=== PATIENT | female | born 1985 | race Caucasian/White ===

== ENCOUNTER 2022-03-07 11:42 | Emergency (ER) | payer BC, SELFPAY ==
[2022-03-07 11:49] VITALS: BP 112/75; PULSE 95; RESP 18; TEMP 37; O2SAT 94; BMI 23.4
[2022-03-07 12:00] VITALS: BP 103/67; PULSE 91; O2SAT 98
--- NOTE | 2022-03-07 12:14 | CRLHL7_ITS ---
For Patients: As a result of the Cures Act, medical imaging exams and procedure reports are released immediately into your electronic medical record. You may view this report before your referring provider. If you have questions, please contact your health care provider. INDICATION: Fever. Recent right hip surgery. TECHNIQUE: PA and lateral. COMPARISON: None. FINDINGS: Marked dextroscoliosis and exaggerated kyphosis. Left base opacity and obscured left diaphragm due to any combination of pneumonia, atelectasis and scarring. No obvious pleural effusion. Heart size and pulmonary vasculature within normal limits. No significant osseous abnormality. IMPRESSION: 1. Left base opacity and obscured diaphragm due to any combination of pneumonia, atelectasis and scarring. 2. Marked kyphoscoliosis. Dictated by Joseph Thao MD @ 03/07/2022 1:22:17 PM (Electronically Signed)
[2022-03-07 12:43] LABS: Basophils Absolute Auto 0.02 K/uL (0.00-0.30); Basophils Percent Auto 0.3 % (0.0-3.0); Eosinophils Absolute Auto 0.01 K/uL (0.00-0.50); Eosinophils Percent Auto 0.2 % (0.0-7.0); Hematocrit 29.4 % (33.0-51.0); Hemoglobin* 9.8 gm/dL (12.0-16.0); Immature Granulocytes Abs Auto 0.01 K/uL (0.00-0.30); Immature Granulocytes Pct Auto 0.2 %; Lymphocytes Percent Auto 9.8 % (20-44); Mean Corpuscular HGB Conc 33 gm/dL (32-36); Mean Corpuscular Hemoglobin 33 pg (26-34); Mean Corpuscular Volume 99 fL (80-100); Monocytes Percent Auto 11.9 % (0.0-11.0); Neutrophils Percent Auto 77.6 % (42.0-72.0); Platelet Count* 139 K/uL (140-440); Red Blood Count 2.96 m/uL (4.00-5.20); Slide Review Reflex No; White Blood Count* 6.45 K/uL (4.50-11.00)
[2022-03-07 12:44] LABS: Appearance Urine Clear (Clear); Bilirubin Urine Negative (Negative); Blood Urine Negative (Negative); Color Urine Yellow (Yellow); Glucose Urine Negative (Negative); Ketones Urine 4+ (Negative); Leukocyte Esterase Urine Negative (Negative); Nitrite Urine Negative (Negative); Protein Urine Negative (Negative); Specific Gravity Urine 1.025 (1.000-1.030); Urobilinogen Urine 0.2 (0.2-1.0)
--- NOTE | 2022-03-07 12:45 | ED_ITS ---
HPI - General Adult General Date Seen: 03/07/22 Chief complaint: Post Op Complication Stated complaint: Fever post RT hip replacement Time Seen by Provider: 03/07/22 12:04 Source: patient History of Present Illness HPI narrative: Patient is a 36-year-old here for evaluation of fever, tachycardia, and nausea after hip replacement on Tuesday. She says that she was discharged yesterday, had been feeling well until last night when she noticed that her heart rate was 100-110. She says her other vital signs were fine. Overnight, she developed nausea, she had a couple small episodes of vomiting despite taking Zofran. She had had difficulty with opioids in the hospital with nausea and dizziness, was discharged on tramadol since she had not tolerated oxycodone. She took extra tramadol overnight due to increased pain in her hip. She has not taken any today secondary to her tachycardia, thinking that the tramadol might be the cause. This morning, she had noted a fever up to 101. She denies chest pain or shortness of breath, no cough. She denies lower extremity swelling or pain. She is taking aspirin 3 times daily. No history of DVT or PE. She has not had urinary symptoms. Her wound is looking good. She called the ortho clinic and was advised to come in for evaluation. She notes that her heart rate continues to be elevated, but says that her fever has resolved. General health is good aside from her congenital hip abnormality. Related Data Previous Rx's Medication Instructions Recorded doxycycline hyclate 100 mg capsule 100 mg PO BID #20 caps 03/07/22 metoclopramide HCl 10 mg tablet 10 mg PO Q6H PRN nausea and 03/07/22 vomiting #10 tabs Allergies Allergy/AdvReac Type Severity Reaction Status Date / Time Sulfa (Sulfonamide Allergy Intermediate Verified 03/07/22 11:56 Antibiotics) sulfamethoxazole Allergy Intermediate Verified 03/07/22 11:56 [From Bactrim] trimethoprim [From Bactrim] Allergy Intermediate Verified 03/07/22 11:56 ciprofloxacin [From Cipro] Allergy Unknown Verified 03/07/22 11:56 Review of Systems Status of ROS: Reports: 10 or more systems reviewed and unremarkable except as noted in History and below PFSH PFSH Social History Smoking Status: Never smoker How often do you have a drink containing alcohol: 2-4 times a month AUDIT-C Alcohol total score: 2 Non-prescribed substance use: denies use Exam Narrative: Exam Narrative: Vital signs as noted above. In general, an alert, well-appearing patient. Breathing easily. Looks comfortable. Head: Normocephalic, atraumatic. Eyes: Pupils are equal reactive. Extraocular movements are full. Conjunctivae are normal. ENT: Mucous membranes are moist. Throat is normal. Neck: Supple without lymphadenopathy. Heart: Regular rate and rhythm. No murmur or rub. Lungs: Breath sounds are somewhat diminished at the left base, some crackles no neha there. Otherwise clear. Abdomen: Soft and nontender. No organomegaly. Extremities: No significant edema is noted bilaterally. Her incision has dressing on it but there is no erythema or swelling noted surrounding the dressing. Pulses intact bilaterally. Neurologic: Patient is alert and oriented to person and place. Speech is fluent. Face is symmetric. Moves all extremities equally. Affect: Normal. Skin: Warm and dry. Well perfused. Const: Vital Signs, click to edit/add: Vital Signs - 24 hr 03/07/22 11:49 Temperature 98.6 F Pulse Rate [Pulse Oximeter] 95 Respiratory Rate 18 Blood Pressure [Ri ght Upper Arm] 112/75 Pulse Oximetry 94 Oxygen Delivery Me thod Room Air Documenting provider has reviewed patient's vital signs: yes Course Course Hospital Course: Plan at this time is to place an IV and give some normal saline. I am going to give her some Reglan and then try tramadol here, see if she tolerates it better with a different antiemetic. I suspect that her nausea at home may be related to the tramadol since she has not generally tolerated opioids well. Tachycardia may be related simply to some dehydration given a couple episodes of vomiting. She is afebrile here, nontoxic in appearance. Will check some labs, suspicion for sepsis or serious infection is low. UA is pending. She does have some findings on lung exam therefore and getting at chest x-ray although she does not complain of significant shortness of breath or cough. She is not describing symptoms of PE, she is not tachycardic here, O2 sats recorded at 94% but she was 96% on room air when I was in the room. She had a L of normal saline, had tramadol here with Reglan and feels considerably better. Did not have any difficulty with nausea or vomiting. She feels much better after fluids. Labs are fairly unremarkable. Hemoglobin is 9.8, I do not know what her hemoglobin was postoperatively but I suspect that is stable. White count is normal. CRP is 4.4, probably reasonable several days postop. Sodium is 133. Other electrolytes normal. BUN 7, creatinine 0.3. Urinalysis was most notable for 4+ ketones and a spec grav of 1.025. I do think she is dehydrated which is contributing to her symptoms. She is feeling improved after fluids. I did do a chest x-ray, this is read by Radiology as showin. Left base opacity and obscured diaphragm due to any combination of pneumonia, atelectasis and scarring. 2. Marked kyphoscoliosis. I have talked these findings over with her. Given that she does not have a cough or respiratory symptoms right now, we are going to wait and see how she does. I have called a prescription for antibiotics and if she is developing cough or shortness of breath, she can go ahead and start those. If the fever resolves and she does not develop any respiratory symptoms, then I do not think she needs to necessarily start antibiotics. Symptoms may be attributable simply to atelectasis. She is comfortable with that plan. Ortho follow-up as planned, sooner for any concerns about the wound or ongoing fevers. Return at any time for acute worsening or new symptoms such as chest pain, significant shortness of breath, unusual leg pain or swelling, fainting, etcetera. Vital Signs Vital signs: Initial Vital Signs Temperature 98.6 F 03/07/22 11:49 Temperature Source Temporal Artery Scan 03/07/22 11:49 Pulse Rate 95 03/07/22 11:49 Respiratory Rate 18 03/07/22 11:49 Blood Pressure 112/75 03/07/22 11:49 Blood Pressure Mean 87 03/07/22 11:49 Blood Pressure Position Supine 03/07/22 11:49 Pulse Oximetry 94 03/07/22 11:49 Oxygen Delivery Method 03/07/22 11:49 Vital Signs Temperature 98.6 F 03/07/22 11:49 Pulse Rate 95 03/07/22 11:49 Respiratory Rate 18 03/07/22 11:49 Blood Pressure 112/75 03/07/22 11:49 Pulse Oximetry 94 03/07/22 11:49 Oxygen Delivery Method 03/07/22 11:49 Temperature 98.6 F 03/07/22 11:49 Pulse Rate 95 03/07/22 11:49 Respiratory Rate 18 03/07/22 11:49 Blood Pressure 112/75 03/07/22 11:49 Pulse Oximetry 94 03/07/22 11:49 Oxygen Delivery Method 03/07/22 11:49 Medical Decision Making Lab Data Labs: Lab Results 03/07/22 03/07/22 03/07/22 Range/Units 12:30 12:30 12:30 WBC 6.45 (4.50-11.00) K/uL RBC 2.96 L (4.00-5.20) m/uL Hgb 9.8 L (12.0-16.0) gm/dL Hct 29.4 L (33.0-51.0) % MCV 99 (80-100) fL MCH 33 (26-34) pg MCHC 33 (32-36) gm/dL RDW Coeff of [place] 13.0 (11.5-15.5) % Plt Count 139 L (140-440) K/uL Neut % (Auto) 77.6 H (42.0-72.0) % Lymph % (Auto) 9.8 L (20-44) % [place] % (Auto) 11.9 H (0.0-11.0) % Eos % (Auto) 0.2 (0.0-7.0) % Baso % (Auto) 0.3 (0.0-3.0) % Neut # (Auto) 5.00 (1.7-7.0) K/uL Lymph # (Auto) 0.60 L (0.90-2.90) K/uL [place] # (Auto) 0.80 (0.00-0.90) K/UL Eos # (Auto) 0.01 (0.00-0.50) K/uL Baso # (Auto) 0.02 (0.00-0.30) K/uL Sodium 133 L (135-149) mmol/L Potassium 3.8 (3.6-5.1) mmol/L Chloride 102 (96-114) mmol/L Carbon Dioxide 28 (20-32) mmol/L BUN 7 (5-24) mg/dL Creatinine 0.3 L (0.5-1.5) mg/dL Estimated Creat Clear 215.34 Estimated GFR 141 ml/min Glucose 97 (60-115) mg/dL Calcium 7.7 L (8.4-10.6) mg/dL C-Reactive Protein 4.4 H (0.5-1.0) mg/dL Urine Color Yellow (Yellow) Urine Appearance Clear (Clear) Urine pH 7.0 (5.0-8.5) Ur Specific [place] 1.025 (1.000-1.030) Urine Protein Negative (Negative) Urine Glucose (UA) Negative (Negative) Urine Ketones 4+ A (Negative) Urine Blood Negative (Negative) Urine Nitrite Negative (Negative) Urine Bilirubin Negative (Negative) Urine Urobilinogen 0.2 (0.2-1.0) Ur Leukocyte Esterase Negative (Negative) Urine RBC 0-2 (0-2) Urine WBC 0-2 (0-5) Ur Squamous Epith Cells Few (None-Few) Urine Bacteria Few A (None) Discharge Plan Discharge Clinical Impression: Fever, Dehydration Patient Disposition: Home, Self-Care Condition: Improved Instructions: Dehydration (ED), Fever in Adults (ED) Additional Instructions: Continue to work on hydration. If you have consistent fevers, develops worsening respiratory symptoms such as cough, you can start the antibiotic. Try the Reglan instead of Zofran to see if you have better luck with nausea/vomiting. If you have significant worsening shortness of breath, new symptoms such as chest pain, unusual leg swelling or pain, you should be seen again. Prescriptions: New metoclopramide HCl 10 mg tablet 10 mg PO Q6H PRN (Reason: nausea and vomiting) Qty: 10 0RF doxycycline hyclate 100 mg capsule 100 mg PO BID Qty: 20 0RF Follow Up/Referrals: Provider,Not a Local [Primary Care Provider] - Stand Alone Forms: [employer] Info Instructions
[2022-03-07 12:54] LABS: Bacteria Urine Few; RBC Urine 0-2 (0-2); Squamous Epithelial Cell Urine Few (None-Few); WBC Urine 0-2 (0-5)
[2022-03-07 12:56] LABS: Chloride* 102 mmol/L (96-114); Potassium* 3.8 mmol/L (3.6-5.1); Sodium* 133 mmol/L (135-149)
[2022-03-07 12:59] LABS: Creatinine* 0.3 mg/dL (0.5-1.5); Est. Creatinine Clearance* 215.34; Estimated Glomerular Filt Rate 141 ml/min
[2022-03-07 13:00] VITALS: BP 104/64; PULSE 92; O2SAT 94
[2022-03-07 13:00] LABS: Blood Urea Nitrogen* 7 mg/dL (5-24); Calcium* 7.7 mg/dL (8.4-10.6); Carbon Dioxide* 28 mmol/L (20-32); Glucose* 97 mg/dL (60-115)
[2022-03-07 13:03] LABS: C Reactive Protein* 4.4 mg/dL (0.5-1.0)
[2022-03-07] MEDS: METOCLOPRAMIDE HCL 10 MG in 0.9 % SODIUM CHLORIDE 100 ml 100 ML 306 MG IVPB (13:06)
[2022-03-07] MEDS: 0.9 % SODIUM CHLORIDE 1000 ml 1,000 ML IV (13:06)
--- NOTE | 2022-03-07 13:09 | ED.NURSE ---
pt back from radiology, ns and reglan infusing. pt will hold off on tramadol until stomach settles down a little. mother at bedside.
[2022-03-07] MEDS: TRAMADOL HCL 50 MG TABLET PO (13:26)
[2022-03-07 13:30] VITALS: BP 104/74; PULSE 96; O2SAT 93
[2022-03-07 14:00] VITALS: BP 112/77; PULSE 96; O2SAT 100
[2022-03-07 14:30] VITALS: BP 114/75; PULSE 96; O2SAT 98
--- NOTE | 2022-03-07 15:15 | ED.NURSE ---
Pt and mom called to ask that metoclopramide be sent to [facility]. Called in and cancelled at [place]
== END 2022-03-07 14:50 | disposition home or self-care (01) ==
PROVIDERS: Emergency Provider Emergency Medicine
DX: R50.9 Fever, unspecified (principal); E86.0 Dehydration; Z98.890 Other specified postprocedural states
CPT/HCPCS: 36415; 71046; 80048; 81001; 85025; 86140; 87086; 96365; 99284; A9270; J2765; J7030

== ENCOUNTER 2022-04-08 14:30 | Outpatient (RCR) | payer BC, SELFPAY | END 2022-09-09 23:59 | disposition home or self-care (01) | PROVIDERS: Visit Provider Orthopaedic Surgery Adult Reconstructive Orthopaedic Surgery | DX: M16.11 Unilateral primary osteoarthritis, right hip (principal); Z51.89 Encounter for other specified aftercare | CPT/HCPCS: 97110; 97112; 97140; 97163 ==

== ENCOUNTER 2023-02-14 20:20 | Emergency (ER) | payer BC, SELFPAY ==
[2023-02-14 20:27] VITALS: BP 120/90; PULSE 70; RESP 16; TEMP 36.6; O2SAT 97; BMI 24.4
--- NOTE | 2023-02-14 20:43 | ED.GENADULT ---
HPI - General Adult General Chief complaint: Laceration/Wound Stated complaint: lac to L pointer finger Time Seen by Provider: 02/14/23 20:27 History of Present Illness HPI narrative: Patient is a 37-year-old woman who was cutting a role tonight when the role slipped and she inadvertently sliced the left index finger. The the laceration is approximately 1/2 cm in length and is located distal to the D IP. No ligamentous or vascular damage was noted. Patient has full range of motion and no other injuries. Patient is not up-to-date on her tetanus shot. Related Data Previous Rx's Medication Instructions Recorded doxycycline hyclate 100 mg capsule 100 mg PO BID #20 caps 03/07/22 metoclopramide HCl 10 mg tablet 10 mg PO Q6H PRN nausea and 03/07/22 vomiting #10 tabs Allergies Allergy/AdvReac Type Severity Reaction Status Date / Time Sulfa (Sulfonamide Allergy Intermediate Verified 02/14/23 20:27 Antibiotics) sulfamethoxazole Allergy Intermediate Verified 02/14/23 20:27 [From Bactrim] trimethoprim [From Bactrim] Allergy Intermediate Verified 02/14/23 20:27 ciprofloxacin [From Cipro] Allergy Unknown Verified 02/14/23 20:27 Review of Systems Status of ROS: Reports: 6 or more systems reviewed and unremarkable except as noted in History and below [facility] Social History Smoking Status: Never smoker How often do you have a drink containing alcohol: 2-4 times a month AUDIT-C Alcohol total score: 2 Non-prescribed substance use: denies use Exam Narrative: Exam Narrative: EXAM GENERAL: Patient appears comfortable and well. EYES: No scleral icterus. LYMPH: No supraclavicular or cervical lymphadenopathy. SKIN: Laceration as described above left index finger. EXT: No dependent lower extremity pedal edema. PSYCH: Good eye contact, speech is not pressured. Const: Vital Signs, click to edit/add: Vital Signs - 24 hr 02/14/23 20:27 Temperature 98 F Pulse Rate [Pulse Oximeter] 70 Respiratory Rate 16 Blood Pressure [Le ft Upper Arm] 120/90 H Pulse Oximetry 97 Course Course ED Course: After cleaning the wound I did close the defect with Dermabond. TD AP was updated. No further recommendations at this time. Vital Signs Vital signs: Initial Vital Signs Temperature 98 F 02/14/23 20:27 Temperature Source Temporal Artery Scan 02/14/23 20:27 Pulse Rate 70 02/14/23 20:27 Respiratory Rate 16 02/14/23 20:27 Blood Pressure 120/90 H 02/14/23 20:27 Blood Pressure Mean 100 02/14/23 20:27 Pulse Oximetry 97 02/14/23 20:27 Vital Signs Temperature 98 F 02/14/23 20:27 Pulse Rate 70 02/14/23 20:27 Respiratory Rate 16 02/14/23 20:27 Blood Pressure 120/90 H 02/14/23 20:27 Pulse Oximetry 97 02/14/23 20:27 Temperature 98 F 02/14/23 20:27 Pulse Rate 70 02/14/23 20:27 Respiratory Rate 16 02/14/23 20:27 Blood Pressure 120/90 H 02/14/23 20:27 Pulse Oximetry 97 02/14/23 20:27 Discharge Plan Discharge Clinical Impression: Laceration Patient Disposition: Home, Self-Care Condition: Stable Instructions: Laceration (ED) Additional Instructions: Wound care as discussed Activity Level: No Restrictions Discharge Diet: Regular Prescriptions: No Action metoclopramide HCl 10 mg tablet 10 mg PO Q6H PRN (Reason: nausea and vomiting) Qty: 10 0RF doxycycline hyclate 100 mg capsule 100 mg PO BID Qty: 20 0RF Follow Up/Referrals: Provider,Not a Local [Primary Care Provider] - Stand Alone Forms: [employer] Info Instructions
--- NOTE | 2023-02-14 21:03 | ED.NURSE ---
Last tetanus, per [facility]: 04/17/2015.
== END 2023-02-14 20:59 | disposition home or self-care (01) ==
PROVIDERS: Emergency Provider Internal Medicine
DX: S61.211A Laceration without foreign body of left index finger without damage to nail, initial encounter (principal); W26.0XXA Contact with knife, initial encounter
CPT/HCPCS: 12001; 99282; 99283